=== PATIENT | male | born 2000 | race Caucasian/White ===

== ENCOUNTER 2018-03-09 03:15 | Emergency (ER) | payer OTHER ==
[~2018-03-09] VITALS: Ht 172.7 cm; Wt 51.6 kg
[2018-03-09 03:23] VITALS: TEMP 36.8; O2SAT 98; Ht 172.7 cm; Wt 51.6 kg
--- NOTE | 2018-03-09 03:36 | EMERGENCY ROOM VISIT NOTE ---
History Report prepared by Dell: Demond Larsen Under the Supervision of: Dr. Bailey Upton D.O. First contact with patient: 03:19 Chief Complaint: ALCOHOL OVERDOSE Stated Complaint: ALCOHOL OVERDOSE Nursing Triage Summary: Patient arrived BLS for evaluation of alcohol overdose. Patient was found sleeping at a bus stop by EMS. Patient had an unknown amount of mixed drinks. History of Present Illness This HPI is limited secondary to the altered mental status of the patient. The patient is a 17 year old male who presents to the Emergency Room via ALS for alcohol intoxication. Per nursing staff the [place] by EMS [place] The patient states that he is really "out of it" at this time. He adds that he was only drinking beer. The patient denies any cardiac history. Review of Systems ROS limited secondary to EtOH intoxication. Past Medical & Surgical No cardiac histories per patient. Family History Family history not acquired secondary to alcohol intoxication. Social History Marital Status: single Housing Status: lives with roommate Occupation Status: student Current/Historical Medications No Active Prescriptions or Reported Meds Allergies Coded Allergies: No Known Allergies (Unverified , 03/09/18) Physical Exam Vital Signs Date Time Temp Pulse Resp B/P (MAP) Pulse Ox O2 Delivery O2 Flow Rate FiO2 03/09/18 07:25 66 03/09/18 07:03 67 18 84/54 97 Room Air 03/09/18 06:00 71 20 91/49 97 Room Air 03/09/18 05:30 74 23 102/39 97 Room Air 03/09/18 05:00 72 18 101/51 97 Room Air 03/09/18 04:30 67 17 85/43 96 Room Air 03/09/18 04:00 102/47 03/09/18 03:45 65 20 97 Room Air 03/09/18 03:32 65 03/09/18 03:30 110/57 03/09/18 03:23 36.8 69 18 111/52 98 Room Air 03/09/18 03:23 98 Room Air Physical Exam General: Pleasant, smelled of alcohol. HEENT: Head - normocephalic and atraumatic Pupils are equal, round, and reactive to light. Extraocular eye muscles are intact, and sclera are anicteric. Nose - moist nasal mucosa without discharge. Mouth - moist buccal mucosa. Oropharynx is nonerythematous and there is no tonsillar exudate or edema noted. Neck: Supple; no JVD, nuchal rigidity, cervical lymphadenopathy. Heart: Regular rate and rhythm. There is a normal S1 and S2 with no murmurs, clicks, or gallops appreciated. Lungs: Clear to auscultation bilaterally with no wheezes, rales, or rhonchi. Abdomen: Soft, completely nontender, nondistended, with good bowel sounds. There are no palpable pulsatile masses or hepatosplenomegaly. There is no guarding, rigidity, or rebound noted. Extremities: No evidence of cyanosis, clubbing, or edema. There are easily palpable peripheral pulses. Skin: warm and dry with good turgor and no rashes. Medical Decision & Procedures Laboratory Results 03/09/18 03:33 Test 03/09/18 03:33 Anion Gap 7.0 mmol/L (3-11) Est Creatinine Clear Calc Drug Dose 105.8 ml/min Estimated GFR () 148.6 Estimated GFR (Non- 128.2 BUN/Creatinine Ratio 12.8 (10-20) Calcium Level 8.3 mg/dl (8.5-10.1) Ethyl Alcohol mg/dL 239.0 mg/dl (0-3) Laboratory results per my review. ED Course 0324: Past medical records reviewed. The patient was evaluated in room B12A. A complete history and physical exam was performed. The patient was placed in the prone position to avoid aspiration. They were observed on the air sampling and monitoring and pulse oximeter. Labs were drawn as above 0510: The patient is sleeping at this time. Vital signs are stable. 0740: I discussed findings and results with him. He verbalized agreement of the treatment plan. The patient was discharged home. Medical Decision The patient is a 17 year old male who presents to the Emergency Department for alcohol overdose. Differential diagnosis includes alcohol overdose, drug intoxication, hyperglycemia, and head injury. Laboratory results were reviewed and show; Alcohol of 239, normal renal function , and normal glucose. The patient was brought to the emergency department after consuming too much alcohol. There were no obvious signs of trauma or complaints of pain. They were observed closely throughout the night and remained stable while here in the ER. The patient was allowed time to sober up prior to discharge. I had a conversation with the patient about the hazards of such excessive alcohol use. Medication Reconcilliation Current Medication List: was personally reviewed by me Blood Pressure Screening Patient's blood pressure: Normal blood pressure Impression Primary Impression: Alcohol overdose Scribe Attestation The scribe's documentation has been prepared under my direction and personally reviewed by me in its entirety. I confirm that the note above accurately reflects all work, treatment, procedures, and medical decision making performed by me. Departure Information Dispostion Home / Self-Care Prescriptions No Active Prescriptions or Reported Meds Patient Instructions My [facility] Problem Qualifiers Primary Impression: Alcohol overdose Encounter type: initial encounter Injury intent: accidental or unintentional Qualified Codes: T51.91XA - Toxic effect of unspecified alcohol , accidental (unintentional), initial encounter
[2018-03-09 03:55] LABS: CALCIUM 8.3 mg/dl (8.5-10.1); CREATININE 0.82 mg/dl (0.60-1.40); POTASSIUM 3.5 mmol/L (3.5-5.1)
[2018-03-09 08:37] VITALS: BP 97/56; PULSE 77; O2SAT 100
== END 2018-03-09 08:38 | disposition home or self-care (01) ==
LOC: C.EDB 03:17
DX: T51.0X1A Toxic effect of ethanol, accidental (unintentional), initial encounter (principal)